=== PATIENT | male | born 1975 | race African-American/Black ===

== ENCOUNTER 2017-11-08 22:17 | Emergency (ER) | payer BC ==
[2017-11-08 22:49] VITALS: BP 127/75
--- NOTE | 2017-11-08 23:10 | RADIOLOGY REPORT (SQ) ---
EXAM DESCRIPTION: PA and lateral views of the chest CLINICAL HISTORY:42 years Male, cough x 1 week Comparison: None FINDINGS: Cardiomediastinal silhouette is within normal limits. No focal lung consolidation. No pleural effusion. No pneumothorax. No acute osseous abnormality. Soft tissues within normal limits. IMPRESSION: No acute lung findings.
[2017-11-08] MEDS ORDERED: IPRATROPIUM/ALBUTEROL 0.5-2.5 MG/3 ML AMPUL NEB ONE (23:35)
--- NOTE | 2017-11-08 23:41 | ER Document Report ---
ED Respiratory Problem - General Chief Complaint: Cough Stated Complaint: CONGESTION Time Seen by Provider: 11/08/17 22:51 Mode of Arrival: Ambulatory Information source: Patient TRAVEL OUTSIDE OF THE [place] IN LAST 30 DAYS: No - HPI Patient complains to provider of: Cough Onset: Last week Notes: Patient is here with complaints of nasal congestion that started last week. Patient states that this has since turned into a cough and some occasional wheezing. The patient does have a history of asthma. He is a non-smoker. He denies any fever. He denies any chest pain or difficulty breathing. Had some intermittent headaches. He denies any blurred or loss vision. No numbness, tingling, weakness. No rash. No injury. No chest pain or shortness of breath. No nausea, vomiting, diarrhea. No abdominal pain. Is almost out of his albuterol inhaler. The patient states that he is allergic to prednisone, this makes him vomit and hick up for a week. He has no other complaints at this time. - Related Data Allergies/Adverse Reactions: prednisone [Prednisone] Adverse Reaction (Verified 10/13/15 06:24) Past Medical History - Social History Smoking Status: Unknown if Ever Smoked Family History: Reviewed & Not Pertinent Patient has suicidal ideation: No Patient has homicidal ideation: No - Past Medical History Cardiac Medical History: Denies: Hx Coronary Artery Disease, Hx Heart Attack, Hx Hypertension Pulmonary Medical History: Reports: Hx Asthma Denies: Hx Bronchitis, Hx COPD, Hx Pneumonia Neurological Medical History: Denies: Hx Cerebrovascular Accident, Hx Seizures Renal/ Medical History: Denies: Hx Peritoneal Dialysis Musculoskeltal Medical History: Denies Hx Arthritis Past Surgical History: Reports: Hx Orthopedic Surgery - Right tibial plateau fracture treated with a screw placed under flouro.. Denies: Hx Pacemaker - Immunizations Immunizations up to date: No Hx Diphtheria, Pertussis, Tetanus Vaccination: Yes - 2010 Review of Systems - Review of Systems -: Yes All other systems reviewed and negative Physical Exam - Vital signs Vitals: Temp Pulse Resp BP Pulse Ox 98.4 F 78 16 127/75 H 97 11/08/17 22:47 11/08/17 22:47 11/08/17 22:47 11/08/17 22:47 11/08/17 22:47 - Notes Notes: GENERAL: alert, cooperative, nontoxic, no distress. HEAD: normocephalic, atraumatic EYES: conjunctiva pink without discharge, no external redness or swelling. EARS: no external swelling, no external redness, no mastoid redness, swelling, tenderness. Ear canals are clear without swelling or drainage. TMs pearly owens , no redness, no bulging, normal landmarks, no perforation. NOSE: atraumatic, no external swelling. clear rhinorrhea noted. MOUTH/THROAT: mucous membranes moist and pink, posterior pharynx without erythema, swelling, exudate. No trismus or drooling. NECK: soft, supple, full range of motion, no meningismus. CHEST: no distress, lungs clear and equal throughout. Few scattered expiratory wheezes throughout. No crackles or rhonchi. Good air movement. No accessory muscle use. CARDIAC: regular rate and rhythm, no murmur, normal capillary refill, normal pulses. No peripheral edema noted. BACK: full range of motion, no CVA tenderness. EXTREMITIES: full range of motion of all extremities. No redness, no swelling. NEURO: alert and oriented A&O3, no focal deficits, full range of motion of all extremities. PYSCH: appropriate mood, affect. Patient is cooperative. SKIN: pink, warm, dry, no rash. Course - Re-evaluation Re-evalutation: 11/08/17 23:39 Patient is nontoxic-appearing with stable vitals. The patient is here with complaints of nasal congestion is turned into cough and some occasional wheezing. The patient has a history of asthma. He is a non-smoker. He has had no fever. He denies any chest pain or shortness of breath. His vitals are stable, he is not tachypneic or hypoxic. He is afebrile. Chest x-ray shows no acute abnormality. On exam he has some scattered expiratory wheezes but good air movement. He is in no respiratory distress. The patient states that he is allergic to prednisone orally as it makes him vomit and hiccup. Patient will be given a DuoNeb in the emergency department. I will refill his albuterol inhaler and I will place him on Advair since he cannot take oral steroids for this mild asthma exacerbation. He is instructed to follow-up with his doctor if not better in the next 5-7 days, sooner for worsening symptoms, high fever, difficulty breathing or swelling, persistent vomiting, or for any further concerns. The patient is noted to have elevated blood pressure during today's emergency department visit. The patient was informed of this finding. The patient was instructed that this may be related to pre-hypertension and requires further evaluation with a primary care provider. The patient has no hypertensive symptoms at this time. The patient's emergency department workup and current diagnosis were explained to the patient and or family. Follow-up instructions were provided. Medications if prescribed were discussed. Instructions for when to return to the emergency department including specific worrisome symptoms were discussed with the patient and/or family. - Vital Signs Vital signs: Temp Pulse Resp BP Pulse Ox 98.4 F 78 16 127/75 H 97 11/08/17 22:47 11/08/17 22:47 11/08/17 22:47 11/08/17 22:47 11/08/17 22:47 - Diagnostic Test Radiology reviewed: Image reviewed, Reports reviewed - Chest x-ray Discharge - Discharge Clinical Impression: Asthma exacerbation Qualifiers: Asthma severity: mild Asthma persistence: unspecified Qualified Code(s): J45.901 - Unspecified asthma with (acute) exacerbation Condition: Stable Disposition: HOME, SELF-CARE Instructions: Asthma ([facility]) Additional Instructions: Take medications as prescribed. Follow-up with your doctor if not better in 5- 7 days, sooner for worsening symptoms, high fever, persistent vomiting, or for any further concerns. Your blood pressure was elevated during today's visit. Have this rechecked with your doctor. Prescriptions: Benzonatate [Tessalon Perle 100 mg Capsule] 100 mg PO Q8HP PRN #10 cap PRN Reason: Albuterol Sulfate [Proair HFA Inhalation Aerosol 8.5 gm MDI] 2 puff IH Q4H PRN # 1 mdi PRN Reason: Fluticasone/Salmeterol [Advair 100-50 Diskus 14 Dose/Diskus] 1 inh IH Q12H #1 inhaler Forms: Elevated Blood Pressure Referrals: [facility] [Provider Group] - Follow up as needed
== END 2017-11-09 00:05 | disposition home or self-care (01) ==
LOC: ER 22:17
DX: J45.901 Unspecified asthma with (acute) exacerbation (principal); R05 Cough; R09.81 Nasal congestion; R51 Headache; R03.0 Elevated blood-pressure reading, without diagnosis of hypertension
CPT/HCPCS: 94640; 99283; 71046; J7620

== ENCOUNTER 2019-05-15 18:21 | Emergency (ER) | payer BC ==
[2019-05-15 18:29] VITALS: BP 124/74
[2019-05-15] MEDS ORDERED: IBUPROFEN 800 MG TABLET PO ONE (19:04)
--- NOTE | 2019-05-15 19:04 | ER Document Report ---
HPI - HPI Time Seen by Provider: 05/15/19 19:00 Pain Level: 3 Context: Patient is a 44-year-old male who presents emergency department with chief complaint of tailbone pain. Patient reports 4 days ago he slipped and fell on hardwood floor landing on his buttocks. Patient reports he is not having any back pain but just tailbone pain. Patient reports when he sits for long period of time he does have some tingling down both of his lower extremities but that this improves once he stands up. Patient denies loss of bowel or bladder or saddle anesthesia. Patient denies head injury or loss of consciousness. Patient reports he has not taken anything for his pain. Past Medical History - General Information source: Patient - Social History Smoking Status: Never Smoker Chew tobacco use (# tins/day): No Frequency of alcohol use: Occasional Drug Abuse: None Lives with: Family Family History: Reviewed & Not Pertinent Patient has suicidal ideation: No Patient has homicidal ideation: No - Past Medical History Cardiac Medical History: Reports: None Denies: Hx Coronary Artery Disease, Hx Heart Attack, Hx Hypertension Pulmonary Medical History: Reports: Hx Asthma Denies: Hx Bronchitis, Hx COPD, Hx Pneumonia EENT Medical History: Reports: None Neurological Medical History: Reports: None. Denies: Hx Cerebrovascular Accident, Hx Seizures Endocrine Medical History: Reports: None Renal/ Medical History: Reports: None. Denies: Hx Peritoneal Dialysis Malignancy Medical History: Reports None GI Medical History: Reports: None Musculoskeletal Medical History: Reports None, Denies Hx Arthritis Skin Medical History: Reports None Psychiatric Medical History: Reports: None Traumatic Medical History: Reports: None Infectious Medical History: Reports: None Past Surgical History: Reports: Hx Orthopedic Surgery - Right tibial plateau fracture treated with a screw placed under flouro.. Denies: Hx Pacemaker - Immunizations Immunizations up to date: No Hx Diphtheria, Pertussis, Tetanus Vaccination: Yes - 2010 [facility] Provider Document - CONSTITUTIONAL Agree With Documented VS: Yes Exam Limitations: No Limitations General Appearance: No Apparent Distress - INFECTION CONTROL TRAVEL OUTSIDE OF THE [place] IN LAST 30 DAYS: No - HEENT HEENT: Atraumatic, Normal ENT Exam, Normocephalic, PERRLA - NECK Neck: Normal Inspection - RESPIRATORY Respiratory: Breath Sounds Normal, No Respiratory Distress - CARDIOVASCULAR Cardiovascular: Regular Rate, Regular Rhythm - GI/ABDOMEN Gastrointestinal: Abdomen Soft, Abdomen Non-Tender, Normal Bowel Sounds - BACK Notes: Patient does not have any cervical, thoracic or lumbar midline tenderness. Patient does have tenderness to the coccyx area. There is no surrounding edema, ecchymosis or erythema. No open wounds. - MUSCULOSKELETAL/EXTREMETIES Musculoskeletal/Extremeties: FROM, Non-Tender - She was on Wednesday - NEURO Level of Consciousness: Awake, Alert, Appropriate - DERM Integumentary: Warm, Dry, No Rash Course - Vital Signs Vital signs: Temp Pulse Resp BP Pulse Ox 98.0 F 57 L 16 124/74 100 05/15/19 18:27 05/15/19 18:27 05/15/19 18:27 05/15/19 18:27 05/15/19 18:27 - Diagnostic Test Radiology reviewed: Reports reviewed Radiology results interpreted by me: 05/15/19 19:41 Sacrum and Coccyx X-Ray 05/15/19 19:04 IMPRESSION: No acute finding. 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 Discharge - Discharge Clinical Impression: Coccyx pain Fall Qualifiers: Encounter type: initial encounter Qualified Code(s): W19.XXXA - Unspecified fall, initial encounter Condition: Stable Disposition: HOME, SELF-CARE Additional Instructions: *Today you are seen in emergency department after falling on your tailbone. Your x-ray was negative for any acute fracture. Even if this was fracture the treatment is the same. Please use conservative measures such as a donut seat cushion, cold packs, stool softeners to avoid constipation as this can put pressure on your rectum and lower back. Please take Tylenol and ibuprofen as needed for pain. Please return the emergency department if your symptoms worsen. Coccyx Injury Your painful tailbone is due to an injury to the `coccyx', the bone at the end of the spine. While quite painful, this injury isn't serious. In fact, it's really not important whether the bone is fractured or not -- the treatment is the same. In general, this injury is treated by cold-packing the area and resting for a few days. Once you are active again, you may find that a `donut' seat cushion (often used after delivering a baby) helps you sit more comfortably. Avoid constipation by getting lots of fiber. Expect about three or four weeks before you are painfree. You should call your doctor if the pain becomes severe, or if you fail to improve as expected.
--- NOTE | 2019-05-15 19:26 | RADIOLOGY REPORT (SQ) ---
EXAM DESCRIPTION: SACRUM AND COCCYX COMPLETED DATE/TIME: 05/15/2019 7:14 pm REASON FOR STUDY: fell on tailbone COMPARISON: None. NUMBER OF VIEWS: Three views. TECHNIQUE: AP, lateral, and tilt views of the sacrum and coccyx. LIMITATIONS: None. FINDINGS: MINERALIZATION: Normal. BONES: No fracture or dislocation. There is a transitional vertebra. SOFT TISSUES: No soft tissue swelling. No foreign body. OTHER: No other significant finding. IMPRESSION: No acute finding. 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 TECHNICAL DOCUMENTATION: JOB ID: [id number] [employer]- All Rights Reserved Reading location - IP/workstation name: [email or web address]
== END 2019-05-15 19:52 | disposition home or self-care (01) ==
LOC: ER 18:21
DX: M53.3 Sacrococcygeal disorders, not elsewhere classified (principal); R20.0 Anesthesia of skin; W01.0XXA Fall on same level from slipping, tripping and stumbling without subsequent striking against object, initial encounter; J45.909 Unspecified asthma, uncomplicated
CPT/HCPCS: 72220; 99283